=== PATIENT | male | born 1965 | race Caucasian/White ===

== ENCOUNTER 2017-08-07 11:56 | Day surgery (SDC) | payer OTHER ==
[2017-08-07] MEDS ORDERED: PROPOFOL 40 ML (14:39)
== END 2017-08-07 16:40 | disposition home or self-care (01) ==
LOC: SDS 11:56 → GIL 16:40
DX: Z12.11 Encounter for screening for malignant neoplasm of colon (principal); K64.8 Other hemorrhoids; J45.909 Unspecified asthma, uncomplicated
CPT/HCPCS: 45378